=== PATIENT | male | born 1965 | race Hispanic/Latino ===

== ENCOUNTER 2024-06-23 07:43 | Day surgery (SDC) | payer OTHER ==
[2024-06-18 09:37] LABS: BASOPHILS # (AUTO) 0.1 (0.0-0.1); BASOPHILS % 0.6 % (0.0-1.0); EOSINOPHILS # (AUTO) 0.2 (0.0-0.4); EOSINOPHILS % 2.2 % (0.0-6.0); HEMATOCRIT 32.2 % (38.2-49.6); HEMOGLOBIN 10.5 g/dL (14.0-18.0); LYMPHOCYTES # (AUTO) 1.5 (1.0-3.2); LYMPHOCYTES % 15.3 % (18.0-39.1); MEAN CORPUSCULAR HEMOGLOBIN 32.4 pg (28-32); MEAN CORPUSCULAR HGB CONC 32.6 g/dL (31-35); MEAN CORPUSCULAR VOLUME 99.4 fL (81-99); MONOCYTES # (AUTO) 0.7 (0.2-0.8); MONOCYTES % 6.6 % (4.4-11.3); NEUTROPHILS # (AUTO) 7.4 (2.1-6.9); PLATELET COUNT 355 x10e3/uL (140-360); RED BLOOD COUNT 3.24 x10e6/uL (4.3-5.7); RED CELL DISTRIBUTION WIDTH 11.7 % (11.7-14.4); WHITE BLOOD COUNT 9.82 x10e3/uL (4.8-10.8)
[2024-06-18 09:53] LABS: ANION GAP 13.1 mmol/L (8-16); CALCIUM 9.3 mg/dL (8.4-10.2); CREATININE, SERUM 1.47 mg/dL (0.72-1.25); POTASSIUM 5.1 mmol/L (3.5-5.1)
[2024-06-18 10:17] LABS: INR 1.11; PROTHROMBIN TIME 14.9 seconds (11.9-14.5)
[~2024-06-23] VITALS: Ht 180.3 cm; Wt 86.2 kg
[~2024-06-23 07:43] MED LIST: CIPRO500 MG PO; LISINOPRIL10 MG PO
[2024-06-23] MEDS ORDERED: LIDOCAINE HCL 2% LOCAL 20 ML VIAL ONE (07:56)
[2024-06-23] MEDS ORDERED: HEPARIN SOD/SOD CHLORIDE 0 ML ONE (07:56)
[2024-06-23] MEDS ORDERED: HEPARIN SOD (PORCINE) 1000 UNIT/ML 30ML ONE (07:56)
[2024-06-23] MEDS ORDERED: SODIUM CHLORIDE 0.9% 1000ML 0 ML ONE ×2 (07:56→08:10)
[2024-06-23] MEDS ORDERED: VERAPAMIL HCL 2.5 MG/ML 2 ML VIAL ONE (07:56)
[2024-06-23] MEDS ORDERED: IOPAMIDOL 370 MG/ML 100 ML INFUS..BTL INJ ONE (07:56)
[2024-06-23] MEDS ORDERED: NITROGLYCERIN/D5W 200 MCG/ML 0 ML ONE (07:57)
[2024-06-23] MEDS ORDERED: CEFAZOLIN SODIUM 0 GM ONE (08:10)
[2024-06-23] MEDS ORDERED: SODIUM CHLORIDE 0.9% 0 ML ONE (08:12)
== END 2024-06-23 09:00 | disposition home or self-care (01) ==
LOC: CATH LAB 07:43
PROVIDERS: ATTEND Surgery Vascular Surgery
DX: I70.245 Atherosclerosis of native arteries of left leg with ulceration of other part of foot (principal); Z01.812 Encounter for preprocedural laboratory examination; Z53.8 Procedure and treatment not carried out for other reasons
CPT/HCPCS: 36415; 80048; 82948; 85025; 85610; 86850; 86900; J0690; J1644; J2003; J7030; J7050; Q9967